=== PATIENT | female | born 1960 | race Caucasian/White ===

== ENCOUNTER → 2018-03-30 | Outpatient (CLI) | payer OTHER ==
[2018-03-30 07:25] LABS: HEMOGLOBIN 13.2 g/dl (12.0-15.5)
== END ==
LOC: M CARPUL 06:43
DX: R91.1 Solitary pulmonary nodule (principal)
CPT/HCPCS: 94060

== ENCOUNTER → 2018-04-20 | Outpatient (CLI) | payer OTHER | LOC: M PLARAD 12:06 | DX: R91.1 Solitary pulmonary nodule (principal) | CPT/HCPCS: 78815 ==